=== PATIENT | male | born 1965 | race Caucasian/White ===

== ENCOUNTER → 2021-07-27 | Outpatient (CLI) | payer OTHER ==
[2015-05-12 20:51] VITALS: BP 159/100
--- NOTE | 2021-07-28 12:46 | CARD ---
MR#: [id number] Date of Study: 07/27/2021 Ordering Physician: ROSA VAUGHAN, Referring Physician: ROSA VAUGHAN, Tech: Maria Esther Henriquez [facility] APPROVED REPORT INDICATION Palpitations RISK FACTORS Hypertension Obesity Reason : Patient complained of shortness of breath PROCEDURE The patient underwent an Exercise Stress Test using the Olbo Protocol. Blood pressure, heart rate, a nd EKG were monitored. An Echocardiogram was performed by fire technician in four stages in quad fashion. At peak stress four se lected images were obtained and placed side by side with resting images for comparison. STRESS ECHO FINDINGS The resting Echocardiogram showed normal left ventricular systolic contractility with an estimated Ej ection Fraction of about 60 %. The Stress Echocardiogram showed normal augmentation of myocardial wall segments using a 16 segment m shun. The Stress Echocardiogram left ventricular systolic contractility has an estimated Ejection Fraction of about 65%. Test Type: Exercise Stress Nurse/Tech: Ilana Yepez R.N. Test Indications: munguia Cardiac History and Allergies: htn, high chol, dm, Medications: losarta, atorvastatin Medical History: see ehr Resting ECG: SR Resting Heart Rate: 89 bpm Resting Blood Pressure: 134/79mmHg Pretest Chest Pain: No chest pain Nurse/Tech Notes lungs cta, heart tones regular Stress Symptoms No chest pain or symptoms. POST EXERCISE Reason for Termination: Reached target heart rate Target HR: Yes Max HR: 163 bpm 99% of Maximum Predicted HR: 165 bpm Exercise duration: 7:33 min:sec, 3 Stage Exercise capacity: 10.1METs Max Blood Pressure: 145/70mmHg Blood Pressure response to exercise: Normal blood pressure response during stress. Heart Rate response to exercise: normal Chest Pain: No. Arrhythmia: No. ST Change: No. INTERPRETATION Stress EKG Conclusion: The resting EKG showed a sinus rhythm with minimal nonspecific ST segment cordero ges. The stress EKG showed no significant changes from baseline. No EKG evidence of stress-induced ischemia or arrhythmias. <Conclusion> Good exercise tolerance with the patient walking for 7 minutes and 33 seconds on a Lobo protocol. No reported chest pain with exertion. No EKG evidence of stress-induced ischemia. Normal LV systolic function at rest on echocardiogram. Normal LV response to exertion on echocardiogram with no regional wall motion abnormalities. Low risk exercise stress echo. Signed by : Winston Timmons MD Electronically Approved : 07/28/2021 12:46:26
== END ==
LOC: ECHO 13:30
PROVIDERS: ATTEND Internal Medicine Cardiovascular Disease
DX: R07.9 Chest pain, unspecified (principal); R06.00 Dyspnea, unspecified; R00.2 Palpitations
CPT/HCPCS: 93017; 93350